=== PATIENT | male | born 1995 | race Caucasian/White ===

== ENCOUNTER 2022-06-28 15:34 | Emergency (ER) | payer OTHER ==
[~2022-06-28] VITALS: Ht 180.3 cm; Wt 91.0 kg
[2022-06-28 15:41] VITALS: BP 114/65
== END 2022-06-28 19:02 | disposition home or self-care (01) ==
LOC: ER 15:53
DX: F10.129 Alcohol abuse with intoxication, unspecified (principal); F13.10 Sedative, hypnotic or anxiolytic abuse, uncomplicated; Y90.9 Presence of alcohol in blood, level not specified
CPT/HCPCS: 99283